=== PATIENT | male | born 1965 | race Caucasian/White ===

== ENCOUNTER 2019-08-31 14:57 | Emergency (ER) | payer OTHER ==
[~2019-08-31] VITALS: Ht 185.4 cm; Wt 104.3 kg
[~2019-08-31 14:57] MED LIST: AMITRIPTYLINE H25 M2 PO; BUSPIRONE HCL10 MG PO; CARISOPRODOL 3350 MG PO; CLONAZEPAM 0.50.5 M1; CYCLOBENZAPRINE10 MG PO; FROVA2.5 MG PO; MOBIC15 MG PO; NABUMETONE 500500 M1 PO; OMEPRAZOLE40 MG PO; TRAMADOL 50 MG50 MG PO; advil PO; imitrex
[2019-08-31] MEDS ORDERED: INDERAL LA120 M1 PO (15:07)
[2019-08-31] MEDS ORDERED: AMITRIPTYLINE H25 M4 PO (15:07)
[2019-08-31] MEDS ORDERED: PRILOSEC OTC20 MG PO (15:08)
[2019-08-31] MEDS ORDERED: SIMVASTATIN80 MG PO (15:08)
[2019-08-31 15:39] LABS: INFLUENZA A ANTIGEN Negative (Negative); INFLUENZA B ANTIGEN Negative (Negative)
--- NOTE | 2019-08-31 16:03 | EKG ---
[place] [address] ELECTROCARDIOGRAM REPORT Name: CARMITA DUENAS Room: [facility]#: [id number] Admission: 08/31/19 Attend Phys: Discharge: Date of : 67 Date of Service: 08/31/191536 Report #: [id number] THIS REPORT FOR: //name// [facility] ED Test Date: 2019-08-31 Test Time: 15:37:15 Pat Name: CARMITA DUENAS Department: Room: Gender: Technology Infusion Specialist: [place] : [id number] Requested By: Nick Tomas Order Number: [id number] MD: Nhan Epperson Measurements Intervals [place] Rate: 67 P: 28 CA: 161 QRS: 66 QRSD: 102 T: 22 QT: 386 QTc: 408 Interpretive Statements Sinus rhythm Compared to ECG 10/16/2015 13:30:57 No significant changes Electronically Signed On 08-31-2019 16:02:10 CDT by Nhan Epperson [email or web address] <ELECTRONICALLY SIGNED> By: Nhan Epperson MD, [facility] 08/31/19 1602 36 36 Nhan Epperson MD, FACC /EPI
[2019-08-31] MEDS ORDERED: PEPCID20 MG PO (16:10)
[2019-08-31 16:28] VITALS: BP 133/84
== END 2019-08-31 16:28 | disposition home or self-care (01) ==
LOC: M.ERS 14:57
PROVIDERS: Physician Assistant
DX: J02.9 Acute pharyngitis, unspecified (principal); Z88.1 Allergy status to other antibiotic agents; Z88.2 Allergy status to sulfonamides

== ENCOUNTER → 2021-07-02 | Outpatient (CLI) | payer OTHER ==
[~2021-07-02] MED LIST changes: +AMITRIPTYLINE H25 M4 PO; +INDERAL LA120 M1 PO; +PEPCID20 MG PO; +PRILOSEC OTC20 MG PO; +SIMVASTATIN80 MG PO
== END ==
LOC: M.CT 12:34
PROVIDERS: ATTEND Nurse Practitioner Family
DX: Z13.6 Encounter for screening for cardiovascular disorders (principal); I25.10 Atherosclerotic heart disease of native coronary artery without angina pectoris